=== PATIENT | male | born 1950 | race Caucasian/White ===

== ENCOUNTER 2016-12-20 20:38 | Inpatient (IN) | payer OTHER ==
[~2016-12-20] VITALS: Ht 170.2 cm; Wt 95.0 kg
[~2016-12-20 20:38] MED LIST: AMOX500C2 PO
[2016-12-20] MEDS ORDERED: NITROGLYCERIN (SL) 0.4 MG TAB SL ONE (21:30)
[2016-12-20 21:47] LABS: BASOPHILS % 0.6 % (0.0-2.0); EOSINOPHILS # 0.2 10^3/ul (0.0-0.5); EOSINOPHILS % 3.2 % (0.0-7.0); HEMOGLOBIN 12.2 g/dl (14.0-18.0); LYMPHOCYTES # 2.6 10^3/ul (0.8-2.9); LYMPHOCYTES % 35.4 % (15.0-51.0); MEAN CORPUSCULAR HEMOGLOBIN 20.8 pg (29.0-33.0); MEAN CORPUSCULAR HGB CONC 31.3 g/dl (32.0-37.0); MEAN CORPUSCULAR VOLUME 66.6 fl (82.0-101.0); MEAN PLATELET VOLUME 9.7 fl (7.4-10.4); MONOCYTE # 0.7 10^3/ul (0.3-0.9); MONOCYTES % 9.7 % (0.0-11.0); NEUTROPHIL # 3.7 10^3/ul (1.6-7.5); NEUTROPHILS % 50.8 % (39.0-77.0); PLATELET COUNT 278 10^3/UL (140-415); RED BLOOD COUNT 5.86 10^6/ul (4.70-6.10); RED CELL DISTRIBUTION WIDTH 16.3 % (11.5-14.5); WHITE BLOOD COUNT 7.2 10^3/ul (4.8-10.8)
[2016-12-20 22:10] LABS: ANION GAP 15 (8-16); BLOOD UREA NITROGEN 19 mg/dl (7-20); CALCIUM 9.1 mg/dl (8.4-10.2); CARBON DIOXIDE 25 mmol/L (21-31); CHLORIDE 107 mmol/L (97-110); CREATININE 1.21 mg/dl (0.61-1.24); GLUCOSE 128 mg/dl (70-220); POTASSIUM 3.7 mmol/L (3.5-5.1); SODIUM 143 mmol/L (135-144)
[2016-12-20 22:23] LABS: B-TYPE NATRIURETIC PEPTIDE 73 PG/ML (0-125); TROPONIN-I < 0.012 ng/ml (0.00-0.12)
--- NOTE | 2016-12-20 22:25 | RADRPT ---
PROCEDURE: XR Chest. CLINICAL INDICATION: Chest pain. TECHNIQUE: Single frontal view of the chest. COMPARISON: 03/23/2014. FINDINGS: Cardiomegaly. Mild bibasilar atelectasis. The lungs are otherwise clear. No signs of pleural fluid o r pneumothorax are seen. The osseous structures and soft tissues are unremarkable. IMPRESSION: Mild bibasilar atelectasis. RPTAT: [facility] Physician Liane Date Time Electronically viewed and signed by Petra Crowe Physician on 12/20/2016 22:25 RS/
--- NOTE | 2016-12-20 22:48 | ERD ---
ER Documentation Chief Complaint Chief Complaint bib self, cc: cp x 4 hours, did not take medication, coughing HPI This is a 66-year-old male with history of hypertension, hyperlipidemia, who presents to the emergency room for evaluation of chest pain. Patient states that his chest pain for the past 4 hours and localizes it to the center of his chest. The patient describes as a pressure-like sensation with no radiation associated with mild shortness of breath. He does state that days had a dry cough as well. He denies any fevers or chills or diaphoresis associated with her symptoms and also denies any aggravating or relieving factors for her symptoms. The patient came to the ER today for evaluation and states that he has not had a stress test in over one year. ROS All systems reviewed and are negative except as per history of present illness. Medications Home Meds Reported Medications Amoxicillin* (Amoxicillin*) 500 Mg Cap, 500 MG PO Q8, CAP 03/23/14 Allergies Allergies: Coded Allergies: No Known Allergy (Unverified , 03/23/14) PMhx/Soc History of Surgery: Yes (back; shoulder surgeries) Hx Cardiac Disorders: Yes (DC) Hx Miscellaneous Medical Probl: Yes (Gallstones) Hx Alcohol Use: No Hx Substance Use: No Hx Tobacco Use: No Smoking Status: Never smoker Physical Exam Vitals Vital Signs Date Time Temp Pulse Resp B/P Pulse Ox O2 Delivery O2 Flow Rate FiO2 12/20/16 22:10 74 139/74 95 Room Air 12/20/16 20:44 98.5 81 19 135/77 100 Physical Exam INITIAL VITAL SIGNS: Reviewed by me GENERAL: The patient is well developed and appropriate for usual state of health in no apparent distress HEENT: Pupils equal, round, and reactive to light. EOMI. There is no scleral icterus. NECK: C-spine is soft and supple, there is no meningismus. There is no cervical lymphadenopathy. LUNGS: Clear to auscultation bilaterally. There are no rales, wheezes or rhonchi. HEART: Regular rate and rhythm, no murmurs, clicks, rubs or gallops. ABDOMEN: Soft, non-tender, non-distended. There are bowel sounds in all four quadrants. No rebound or guarding. EXTREMITIES: There is no peripheral cyanosis or edema. No focal swelling or erythema. NEUROLOGICAL: The patient moves all four extremities with 5/5 strength. Cranial nerves II - XII are intact. Normal gait. Alert and oriented SKIN: There is no apparent rash or petechiae. HEME/LYMPHATIC: There is no evidence of excessive bruising or lymphedema. PSYCHIATRIC: The patient does not appear anxious or depressed. Result Diagram: 12/20/16211612/20/162116 Results 24 hrs Laboratory Tests Test 12/20/16 21:17 White Blood Count 7.210^3/ul Red Blood Count 5.8610^6/ul Hemoglobin 12.2g/dl Hematocrit 39.0% Mean Corpuscular Volume 66.6fl Mean Corpuscular Hemoglobin 20.8pg Mean Corpuscular Hemoglobin Concent 31.3g/dl Red Cell Distribution Width 16.3% Platelet Count 62676^3/UL Mean Platelet Volume 9.7fl Neutrophils % 50.8% Lymphocytes % 35.4% Monocytes % 9.7% Eosinophils % 3.2% Basophils % 0.6% Nucleated Red Blood Cells % 0.0/100WBC Neutrophils # 3.710^3/ul Lymphocytes # 2.610^3/ul Monocytes # 0.710^3/ul Eosinophils # 0.210^3/ul Basophils # 0.010^3/ul Nucleated Red Blood Cells # 0.010^3/ul Sodium Level 143mmol/L Potassium Level 3.7mmol/L Chloride Level 107mmol/L Carbon Dioxide Level 25mmol/L Anion Gap 15 Blood Urea Nitrogen 19mg/dl Creatinine 1.21mg/dl Glucose Level 128mg/dl Calcium Level 9.1mg/dl Troponin I < 0.012ng/ml B-Type Natriuretic Peptide 73PG/ML Current Medications Medications (Trade) Dose Ordered Sig/Viviana Route PRN Reason Start Time Stop Time Status Last Admin Dose Admin Nitroglycerin (Nitroglycerin (Sl Tab) 0.4 Mg) 1 tab ONCE ONCE SL 12/20/16 21:30 12/20/16 21:31 DC Aspirin (Aspirin) 325 mg ONCE ONCE PO 12/20/16 23:00 12/20/16 23:01 Procedures/MDM EKG: #1 Rate/Rhythm: [Normal Sinus Rhythm] QRS, ST, T-waves: [No changes consistent w/ acute ischemia] Impression: [No evidence of ischemia or arrhythmia] EKG: #2 Rate/Rhythm: [Normal Sinus Rhythm] QRS, ST, T-waves: [No changes consistent w/ acute ischemia] Impression: [No evidence of ischemia or arrhythmia] Chest X-ray 1V Interpreted by me: Soft Tissue: No acute abnormalities Bones: No acute abnormalities Mediastinum/Cardiac Silhouette/Lungs: [No acute abnormalities] This 66-year-old male presents to the ER for evaluation of chest pain. This patient does have a history of hypertension and hyperlipidemia. As patient's first EKG is nonischemic, second EKG is also nonischemic and first troponin is negative. This patient has not had a stress test in over one year and given his age, and multiple risk factors he will be placed in for serial troponins and possible cardiology consultation. The patient will be admitted to Dr. Bard espinoza and will be placed on the telemetry floor at this time. As patient is hemodynamically stable at this time with no signs of hypoxia, and I doubt pulmonary embolism or aortic dissection at this time. Departure Diagnosis: Primary Impression: Chest pain Additional Impression: Microcytic anemia Condition: Stable CHANTEL MIRANDA DO Dec 20, 2016 22:47
[2016-12-20] MEDS ORDERED: ONDANSETRON 4 MG INJ IV PRN (23:00)
[2016-12-20] MEDS ORDERED: ASPIRIN 325 MG TAB PO ONE (23:00)
[2016-12-20] MEDS ORDERED: ACETAMINOPHEN 325 MG TAB PO PRN (23:00)
[2016-12-21] VITALS (16 sets, daily range): BP systolic 119–137; BP diastolic 67–81; PULSE 49–103; RESP 18–20; TEMP 98.7; Ht 170.2 cm; Wt 95.0 kg
[2016-12-21] MEDS ORDERED: morphine 2 MG INJ IV PRN
[2016-12-21 04:31] LABS: CREATINE KINASE 75 IU/L (23-200)
[2016-12-21 04:48] LABS: ALANINE AMINOTRANSFERASE 45 IU/L (13-69); ALBUMIN 3.7 g/dl (3.3-4.9); ALBUMIN/GLOBULIN RATIO 1.05; ALKALINE PHOSPHATASE 75 IU/L (42-121); ANION GAP 16 (8-16); ASPARTATE AMINO TRANSFERASE 25 IU/L (15-46); BILIRUBIN,INDIRECT 0.2 mg/dl (0-1.1); BILIRUBIN,TOTAL 0.2 mg/dl (0.2-1.3); BLOOD UREA NITROGEN 18 mg/dl (7-20); CALCIUM 8.8 mg/dl (8.4-10.2); CARBON DIOXIDE 24 mmol/L (21-31); CHLORIDE 109 mmol/L (97-110); CHOL/HDL RATIO 2.8 RATIO; CHOLESTEROL 106 mg/dl (100-200); CREATININE 1.11 mg/dl (0.61-1.24); GLUCOSE 116 mg/dl (70-220); HDL CHOLESTEROL 37 mg/dl (30-78); SODIUM 145 mmol/L (135-144); TOTAL PROTEIN 7.2 g/dl (6.1-8.1); TRIGLYCERIDES 46 mg/dl (0-149)
[2016-12-21 04:56] LABS: CK-MB 1.07 ng/ml (0.0-2.4); TROPONIN-I < 0.012 ng/ml (0.00-0.12)
[2016-12-21 05:19] LABS: TROPONIN-I < 0.012 ng/ml (0.00-0.12)
[2016-12-21 08:59] LABS: CREATINE KINASE 66 IU/L (23-200)
[2016-12-21 09:04] LABS: TROPONIN-I < 0.012 ng/ml (0.00-0.12)
[2016-12-21 09:05] LABS: CK-MB 0.95 ng/ml (0.0-2.4)
[2016-12-21] MEDS: ASPIRIN (EC) 325 MG TAB PO SCH (09:37)
[2016-12-21] MEDS: METOPROLOL 25 MG TAB PO SCH ×2 (09:38→22:49)
[2016-12-21] MEDS: ENOXAPARIN 40 MG/0.4 ML SYG SC SCH (09:39)
[2016-12-21] MEDS ORDERED: POTASSIUM CHLORIDE (SR) 20 MEQ TAB PO STA (10:59)
[2016-12-21] MEDS ORDERED: MAGNESIUM SULFATE 2 GM/50 ML 50 ML IVPB ONE (11:00)
--- NOTE | 2016-12-21 14:52 | HP ---
DATE OF ADMISSION: 12/20/2016 CHIEF COMPLAINT AND HISTORY OF PRESENT ILLNESS: The patient is a 66-year-old gentleman with a hist ory of hypertension and stated that he was diagnosed with a myocardial infarction while he was in [place] [facility] approximately 7 to 10 days ago. The patient reported that he was suggested to undergo a cardi ac catheterization, but he declined and was discharged home on 5 medications, he could not remember the names, but has not been taking those medications when he came to the [facility] a couple of d ays ago. The patient came to ER with chest pain on and off for 7 to 10 days, it got worse yesterday and therefore decided to come to the ER. The patient did not have any diaphoresis. No reported ra diation to the left upper extremity. The patient's pain was located in the anterior chest. Today, however, he stated that his pain is more when he coughs and sneezes. No reported fever or chills, n o reported upper respiratory infection, no reported nausea, vomiting or diarrhea. No reported abdom inal pain, no reported headache, dizziness, syncope. No history of focal weakness. No history of r esting pain, no history of claudication. REVIEW OF SYSTEMS: Rest of the review of systems was unremarkable. PAST SURGICAL HISTORY: The patient is status post right knee and right shoulder surgery and surgery for disk disease and also surgery for some benign tumor, details not available. PAST MEDICAL HISTORY: History of kidney stone. SOCIAL HISTORY: No smoking, no alcohol. FAMILY HISTORY: The patient's father had diabetes. PHYSICAL EXAMINATION: GENERAL: The patient is conscious, awake, alert. VITAL SIGNS: Temperature 98, pulse 64, respirations 18, blood pressure 119/81, O2 saturation 98%. HEENT: No eye discharge or redness. Extraocular movements intact. Oropharynx clear. NECK: Supple. No evidence of thyromegaly. CHEST: Fairly clear. CARDIOVASCULAR: S1, S2 normal. No murmur. ABDOMEN: Soft, nondistended, nontender. Bowel sounds present. EXTREMITIES: No leg edema. NEUROLOGIC: The patient is awake, alert, fairly oriented with no gross focal deficit. LABORATORY DATA: WBC 7.2, hemoglobin 12.2, platelet 278. Sodium 143, potassium 3.7, BUN 19, creati nine 1.2, glucose 128, calcium 9.1. Troponin negative x3. LDL 60, triglycerides 46. Chest x-ray: Mild bibasilar atelectasis. IMPRESSION: 1. Chest pain, possible recent myocardial infarction, possible underlying coronary artery disease. 2. Hypertension. PLAN: The patient admitted on telemetry floor. The patient will be started on aspirin, nitrate, be ta marin and will give Lovenox for DVT prophylaxis. We will also add a small dose of statins. Th e patient did have a few beats of V-tach, asymptomatic. The patient was hemodynamically stable. We will obtain magnesium level. The patient's potassium was 3.7. We will give 40 mEq p.o. potassium. An echocardiogram will be obtained. I am also requesting a consult from Dr. Irvin Jay. Dictated By: TASHIA LEDBETTER/JAMIE Conf#: [id number] DID#: [id number]
--- NOTE | 2016-12-21 16:33 | RADRPT ---
Echocardiogram Report Patient Name: MATILDE PRYOR Gender: Male Date: 1950 Study Date: 21-Dec-2016 Career Discovery Teacher: NAVEEN Location: 5554 Ref. Physician: TASHIA RODRIGUEZ Quality: Good Procedures: Transthoracic echocardiogram with complete 2D, M-Mode, and doppler examination. Indications: Chest Pain. 2D/M Mode Doppler Measurement Value Normal Ranges Measurement Value Normal Ranges AoR Diam MM 3.5 cm SHANKAR Vmax 3.0 cm2 ACS MM 2.2 cm SHANKAR VTI 3.0 cm2 LA/Ao MM 1.1 AV Peak Beny 1.0 m/sec LA Dimen MM 3.9 cm AV Peak PG 3.8 mmHg LVIDd 2D 4.7 3.5 - 5.6 cm LVOT Peak Beny 0.9 m/sec LVIDs 2D 3.2 2.1 - 4.1 cm LVOT Peak PG 3.0 mmHg LVPWd 2D 1.1 0.6 - 1.1 cm MV E Peak Beny 0.6 m/sec IVSd 2D 1.1 0.6 - 1.1 cm MV A Peak Beny 0.9 m/sec EDV 2D 104.5 cm3 MV E/A 0.7 ESV 2D 34.1 cm3 MV Decel Time 185 msec EF 2D 60.0 50.0 - 65.0 % MV Decel [place] 3 LVOT Diam 2.1 cm MV E/A 0.7 TR Peak Beny 2.2 m/sec TR Peak PG 18.9 mmHg RVSP 22.0 mmHg RA Pressure 3.0 Findings Left Ventricle: Normal left ventricular systolic function. Normal left ventricular cavity size. Normal left ventricular wall thickness. Ejection fraction is visually estimated at 5560 %. Tissue Doppler/Mitral Doppler indices are consistent with impaired relaxation (Stage I diastolic dysfunction). Right Ventricle: Normal right ventricular size. Normal right ventricular systolic function. Left Atrium: The left atrium is normal in size. Right Atrium: The right atrium is normal in size. Atrial Septum: Normal atrial septum. Mitral Valve: Normal appearance of the mitral valve. Normal appearance and function of the mitral valve. Mild mitral leaflet calcification. There is trace to mild mitral valve regurgitation. Aortic Valve: Normal appearance of the aortic valve. No significant aortic stenosis or insufficiency. Normal trileaflet aortic valve structure. Trileaflet aortic valve. Tricuspid Valve: Normal appearance of the tricuspid valve. Estimated peak PA systolic pressure 22 mmHg. There is trace tricuspid regurgitation. Pulmonic Valve: Normal pulmonic valve appearance. Pericardium: Normal pericardium with no significant pericardial effusion. Aorta: Not well visualized. IVC: The IVC is not well visualized. Conclusions 1.Normal left ventricular systolic function. Normal left ventricular cavity size. Normal left ventricular wall thickness. Ejection fraction is visually estimated at 55-60 %. Tissue Doppler/Mitral Doppler indices are consistent with impaired relaxation (Stage I diastolic dysfunction). 2.Normal appearance of the mitral valve. Normal appearance and function of the mitral valve. Mild mitral leaflet calcification. There is trace to mild mitral valve regurgitation. 3.Normal appearance of the tricuspid valve. Estimated peak PA systolic pressure 22 mmHg. There is trace tricuspid regurgitation. Electronically Signed By: Irvin Jay 21-Dec-2016 16:32:54 -0700 Patient Name: MATILDE PRYOR Study Date: 21-Dec-2016 [id number]
--- NOTE | 2016-12-21 16:41 | RADRPT ---
Vent Rate: 73 bpm RR Interval: 0 msec MS Interval: 190 msec QRS Duration: 96 msec QT Interval: 414 msec QTC Interval: 456 msec P-R-T [place]: 58 - 78 - -11 degrees Normal sinus rhythm Incomplete right bundle branch block T wave abnormality, consider inferolateral ischemia Abnormal ECG Electronically Signed By: Irvin Jay [id number]
--- NOTE | 2016-12-21 20:26 | CONS ---
DATE OF ADMISSION: 12/20/2016 DATE OF CONSULTATION: 12/21/2016 TYPE OF CONSULTATION: Cardiology. REASON FOR CONSULTATION: Chest pain, assess for acute coronary syndrome, as well as nonsustained ve ntricular tachycardia. REQUESTING PHYSICIAN: Lopez Haywood MD HISTORY OF PRESENT ILLNESS: Mr. May is a 66-year-old male with a history of hypertension, possible prior myocardial infarction recently while visiting [facility] and told that he was suggested to have a cardiac catheterization at that time but decided to return home for further evaluation and treatment. The patient states since then he has returned home. He has had substernal chest pain d escribed as a pressure-like sensation or a tightening across his chest. Upon arrival in the emergen cy department, temperature of 98.5, blood pressure 135/77, pulse 81, respiratory rate 19, satting 10 0%. The patient's labs revealed a sodium of 145, potassium 4.0, creatinine 1.1, BUN 18. BNP is 73. Troponin negative. LDL 60, HDL 37. TSH was 0.516. White blood count 7.2, hemoglobin 12.2, plate let count of 278. The patient underwent a chest x-ray revealing mild bibasilar atelectasis. The andrea null's electrocardiogram revealed normal sinus rhythm, rate of 73, with normal axis, incomplete rig ht bundle branch block and inferolateral T-wave inversions. The patient subsequently has been admit shamir to the floor and since admitted to floor has had negative troponins x3. The patient denies curr ent chest pain but states that he has had some chest pain this morning. PAST MEDICAL HISTORY: As above in HPI. MEDICATIONS CURRENTLY IN HOSPITAL: 1. Lipitor 10 mg at bedtime. 2. Clotrimazole. 3. Aspirin 324 mg daily. 4. Metoprolol 25 mg p.o. b.i.d. 5. Lovenox 40 mg daily. 6. Sublingual nitroglycerin p.r.n. 7. Tylenol p.r.n. 8. Morphine p.r.n. ALLERGIES: NO KNOWN DRUG ALLERGIES. SOCIAL HISTORY: No tobacco, EtOH or illicit drug use. FAMILY HISTORY: No history of sudden cardiac or early CAD. REVIEW OF SYSTEMS: As above in HPI. CONSTITUTIONAL: No fevers, chills. PULMONARY: No current shortness of breath. CARDIOVASCULAR: Chest pain. GASTROINTESTINAL: No vomiting. GENITOURINARY: No hematuria. MUSCULOSKELETAL: Degenerative joint disease. PSYCHIATRIC: The patient denies depression. NEUROLOGIC: No documented history of CVA. PHYSICAL EXAMINATION VITAL SIGNS: Temperature of 98.8, blood pressure 132/78, pulse 73, respiratory rate 18, satting 98% . GENERAL: The patient is alert, awake, in no acute distress. NECK: JVP approximately 8 cm water. CHEST: Fair air movement throughout. HEART: Regular rate and rhythm. Normal S1, S2, I/ systolic murmur, nondisplaced PMI. ABDOMEN: Positive bowel sounds, soft. EXTREMITIES: No pitting edema, 1+ pulses bilaterally at posterior tibial. LABORATORIES: As above in HPI with the patient having negative troponins since admit x3. IMAGING STUDIES: As above in HPI. No further imaging studies for my review at this time. ELECTROCARDIOGRAM: As above in HPI. No further electrocardiograms for my review at this time. IMPRESSION: 1. Chest pain. Assess for acute coronary syndrome. 2. Abnormal electrocardiogram with inferolateral T-wave inversions. Assess for acute coronary synd blank. 3. Hypertension. 4. Dyslipidemia. 5. History of possible myocardial infarction in [facility] in the last 2 to 3 weeks. 6. Anemia, mild. 7. Hypernatremia, mild. 8. Possible nonsustained ventricular tachycardia x6 beats. 9. Bradycardia. RECOMMENDATIONS: 1. At this time would maintain the patient on telemetry monitoring. 2. Follow rhythm and rate control closely and assess for any possible recurrent bouts of possible v entricular tachycardia or significant bradycardia. 3. Continue the patient's current beta marin at this time. 4. Continue the patient's current aspirin at this time. 5. Will give the patient oral nitrates and follow symptomatology. 6. Continue the patient's current statin therapy and adjust it according to fasting lipid panel. 5. Check a 2D echo to further assess the patient's ejection fraction, wall motion, any major valve abnormalities and will send additional troponin to assure that the patient does not have any coronar y syndromes and if they do return negative, then at that point, I will schedule the patient for a ca rdiac stress test to take place in the morning to assess for the possibility of significant obstruct vianney coronary artery disease, chest pain, subsequently admit to the hospital, EKG abnormalities and possible prior GA, with possible need to progress to left heart catheterization. Thank you for allowing me to take part in the care of this patient. I will continue to follow along very closely with you with further recommendations to be made as the patient progresses through his inpatient hospital clinical course. Dictated By: EUFEMIA JOE/JAMIE Conf#: [id number] DID#: [id number]
[2016-12-21] MEDS: ISOSORBIDE DINITRATE 10 MG TAB PO SCH (22:48)
[2016-12-21] MEDS: ATORVASTATIN 10 MG TAB PO SCH (22:48)
[2016-12-21] MEDS: CLOTRIMAZOLE 1% 30 GM CR TOP SCH (22:50)
[2016-12-22] VITALS (12 sets, daily range): BP systolic 101–116; BP diastolic 60–68; PULSE 65–78; RESP 18–20
[2016-12-22] MEDS: ENOXAPARIN 40 MG/0.4 ML SYG SC SCH (08:34)
[2016-12-22] MEDS: CLOTRIMAZOLE 1% 30 GM CR TOP SCH ×2 (08:35→21:46)
[2016-12-22] MEDS: ISOSORBIDE DINITRATE 10 MG TAB PO SCH ×3 (08:36→21:42)
[2016-12-22] MEDS: ASPIRIN (EC) 325 MG TAB PO SCH (08:36)
[2016-12-22] MEDS: METOPROLOL 25 MG TAB PO SCH ×2 (08:36→21:41)
[2016-12-22] MEDS ORDERED: INFLUENZA VIRUS VACCINE 0.5 ML (DISPENSING) IM* ONE (09:00)
[2016-12-22 09:14] LABS: CALCIUM 9.4 mg/dl (8.4-10.2); CREATININE 1.19 mg/dl (0.61-1.24); POTASSIUM 4.8 mmol/L (3.5-5.1)
[2016-12-22 10:01] LABS: CHOL/HDL RATIO 3.3 RATIO; CHOLESTEROL 134 mg/dl (100-200); HDL CHOLESTEROL 40 mg/dl (30-78); TRIGLYCERIDES 74 mg/dl (0-149)
[2016-12-22 10:12] LABS: TROPONIN-I < 0.012 ng/ml (0.00-0.12)
[2016-12-22] MEDS ORDERED: REGADENOSON 0.4 MG/5 ML SYG ONE (12:41)
--- NOTE | 2016-12-22 13:23 | CONS ---
Date/Time of Note Date/Time of Note DATE: 12/22/16 TIME: 13:12 Assessment/Plan Assessment/Plan Chief Complaint/Hosp Course IMPRESSION: 1. Chest pain. Assess for acute coronary syndrome.-negative trop x 3 2. Abnormal electrocardiogram with inferolateral T-wave inversions. 3. Hypertension. 4. Dyslipidemia. 5. History of possible myocardial infarction in [facility] in the last 2 to 3 weeks. 6. Anemia, mild. 7. Hypernatremia, mild. 8. Possible nonsustained ventricular tachycardia x6 beats. 9. Bradycardia. Recc: -Tele -Continue BB/oral nitrates -Continue statin -Lexiscan stress test today -await echo Problems: Consultation Date/Type/Reason Admit Date/Time Dec 20, 2016 at 22:45 Initial Consult Date 12/20/2016 Type of Consultation: cardiology Reason for Consultation chest pain Referring Provider: TASHIA RODRIGUEZ MD Exam/Review of Systems Vital Signs Vitals Vital Signs Date Time Temp Pulse Resp B/P Pulse Ox O2 Delivery O2 Flow Rate FiO2 12/22/16 11:58 98.3 72 20 101/61 93 12/21/16 04:10 Nasal Cannula 2.0 Intake and Output 12/21/16 12/21/16 12/22/16 15:00 23:00 07:00 Intake Total 50 ml 750 ml 350 ml Output Total 1000 ml Balance 50 ml -250 ml 350 ml Exam Review of Systems: CONSTITUTIONAL: No fevers, chills. PULMONARY: No sob CARDIOVASCULAR: No chest pain/palpitations GASTROINTESTINAL: No nausea/vomiting. GENITOURINARY: No hematuria/dysuria. MUSCULOSKELETAL: No myagias/arthalgias. PSYCHIATRIC: The patient denies depression. NEUROLOGIC: No weakness Constitutional: alert, oriented Psych: no complaints Head: normocephalic Neck: jvd (9 cm water), supple Respiratory: clear to auscultation Cardiovascular: regular rate and rhythm Gastrointestinal: non-tender, soft Musculoskeletal: muscle tone (normal) Extremities: edema (none) Neurological: other (none) Results Result Diagram: 12/20/16211612/22/16 0805 Results 24 hrs Laboratory Tests Test 12/22/16 08:05 Sodium Level 144 Potassium Level 4.8 Chloride Level 105 Carbon Dioxide Level 28 Anion Gap 16 Blood Urea Nitrogen 18 Creatinine 1.19 Glucose Level 100 Calcium Level 9.4 Magnesium Level 2.0 Troponin I < 0.012 Triglycerides Level 74 Cholesterol Level 134 LDL Cholesterol, Calculated 79 HDL Cholesterol 40 Cholesterol/HDL Ratio 3.3 Medications Medications Current Medications Aspirin (Ecotrin) 325 mg DAILY PO Last administered on 12/22/16 08:36; Admin Dose 325 MG; Start 12/21/16 at 09:00 Nitroglycerin (Nitroglycerin (Sl Tab) 0.4 Mg) 1 tab Q5M PRN SL ANGINA; Start 12/21/16 at 00:00 Metoprolol Tartrate (Lopressor) 25 mg BID PO Last administered on 12/22/16 08 :36; Admin Dose 25 MG; Start 12/21/16 at 09:00 Acetaminophen (Tylenol Tab) 500 mg Q4H PRN PO PAIN AND OR ELEVATED TEMP; Start 12/21/16 at 00:00 Enoxaparin Sodium (Lovenox) 40 mg DAILY SC Last administered on 12/22/16 08: 34; Admin Dose 40 MG; Start 12/21/16 at 09:00 Morphine Sulfate (morphine) 2 mg Q4H PRN IV PAIN LEVEL 4-6; Start 12/21/16 at 00:00 Atorvastatin Calcium (Lipitor) 10 mg HS PO Last administered on 12/21/16 22: 48; Admin Dose 10 MG; Start 12/21/16 at 21:00 Clotrimazole (Lotrimin Cr) 1 applic BID TOP Last administered on 12/22/16 08: 35; Admin Dose 1 APPLIC; Start 12/21/16 at 21:00 Isosorbide Dinitrate (Isordil) 10 mg TID PO Last administered on 12/22/16 08: 36; Admin Dose 10 MG; Start 12/21/16 at 21:00 EUFEMIA BRIDGES Dec 22, 2016 13:23
--- NOTE | 2016-12-22 15:26 | RADRPT ---
PROCEDURE: Lexiscan myocardial perfusion study CLINICAL INDICATION: 66 -year-old patient complaining of chest pain. TECHNIQUE: Lexiscan 0.4 mg intravenously separate acquisition gated myocardial perfusion SPECT usi ng Tc 99m Myoview 28.7 mCi intravenously at stress and Tc-99m Myoview, 10.4 mCi intravenously at res t was performed using the rest/stress sequence. Poststress Myoview SPECT images were obtained in th e supine position. COMPARISON: No prior studies. FINDINGS: Perfusion images reveal no evidence of perfusion defects. Lexiscan post stress gated SPECT images demonstrate no wall motion abnormalities. IMPRESSION: 1. No evidence of perfusion defects. 2. No wall motion abnormalities. 3. The left ventricle ejection fraction at stress is 65%. A call report was made to Dr. Jay at 03:24 p.m. on December 22, 2016. RPTAT: HH .Doris Diez MD, Date Time Electronically viewed and signed by .Doris Diez MD, MD on 12/22/2016 15:26 .L/
--- NOTE | 2016-12-22 15:30 | RADRPT ---
PROCEDURE: Renal US. CLINICAL INDICATION: Flank pain. TECHNIQUE: Multiple sonographic images of the kidneys and urinary bladder were obtained. The imag es were reviewed on a PACS workstation. COMPARISON: No prior studies are available for comparison. FINDINGS: The right kidney measures 12.1 x 5.6 x 5.5 cm. The left kidney measures 11.4 x 5.3 x 4.8 cm. There is no solid renal mass. There is a benign cyst in the mid right kidney measuring 1.5 x 1.8 x 1 .6 cm. There is no hydronephrosis. There is a nonobstructing 0.4 cm calculus in the mid right kidney. There is no other renal calculus. Renal parenchymal thickness is normal bilaterally. Echogenicity is normal bilaterally. The perirenal regions are normal with no fluid collection or mass. The urinary bladder is unremarkable. IMPRESSION: 1. Benign cyst in the mid right kidney measuring 1.6 cm. 2. Nonobstructing 0.4 cm calculus in the mid right kidney. 3. Otherwise normal renal ultrasound. RPTAT: QQ .Fernando Bloom MD, Date Time Electronically viewed and signed by .Fernando Bloom MD, MD on 12/22/2016 15:30 .R/
--- NOTE | 2016-12-22 19:16 | PN ---
Date/Time of Note Date/Time of Note DATE: 12/22/16 TIME: 19:12 Assessment/Plan VTE Prophylaxis VTE Prophylaxis Intervention: SCD's Lines/Catheters IV [facility]ter [facility]from [facility] Saline Lock Urinary Cath still in place: No Assessment/Plan Chief Complaint/Hosp Course Patient status post Lexiscan today, denies any chest pain denies any shortness of breath. Problems: Assessment/Plan - Chest pain. Assess for acute coronary syndrome.-negative trop x 3. Status post Lexiscan today. - Hypertension. Continue metoprolol. - Dyslipidemia. Continue Lipitor. - Nonsustained ventricular tachycardia x6 beats 2 days ago. Further recommendations based on clinical course. Plan of care discussed with Dr. Haywood Exam/Review of Systems Vital Signs Vitals Vital Signs Date Time Temp Pulse Resp B/P Pulse Ox O2 Delivery O2 Flow Rate FiO2 12/22/16 16:00 78 12/22/16 15:55 99.0 20 116/65 96 12/21/16 04:10 Nasal Cannula 2.0 Intake and Output 12/21/16 12/21/16 12/22/16 15:00 23:00 07:00 Intake Total 50 ml 750 ml 350 ml Output Total 1000 ml Balance 50 ml -250 ml 350 ml Exam Constitutional: alert, oriented Head: normocephalic Neck: supple Respiratory: normal air movement Cardiovascular: nl pulses, regular rate and rhythm Gastrointestinal: non-tender, soft Musculoskeletal: nl extremities to inspection Extremities: normal pulses Results Result Diagram: 12/20/16211612/22/16 0805 Results 24 hrs Laboratory Tests Test 12/22/16 08:05 Sodium Level 144 Potassium Level 4.8 Chloride Level 105 Carbon Dioxide Level 28 Anion Gap 16 Blood Urea Nitrogen 18 Creatinine 1.19 Glucose Level 100 Calcium Level 9.4 Magnesium Level 2.0 Troponin I < 0.012 Triglycerides Level 74 Cholesterol Level 134 LDL Cholesterol, Calculated 79 HDL Cholesterol 40 Cholesterol/HDL Ratio 3.3 Medications Medications Current Medications Aspirin (Ecotrin) 325 mg DAILY PO Last administered on 12/22/16t 08:36; Admin Dose 325 MG; Start 12/21/16 at 09:00 Nitroglycerin (Nitroglycerin (Sl Tab) 0.4 Mg) 1 tab Q5M PRN SL ANGINA; Start 12/21/16 at 00:00 Metoprolol Tartrate (Lopressor) 25 mg BID PO Last administered on 12/22/16 08 :36; Admin Dose 25 MG; Start 12/21/16 at 09:00 Acetaminophen (Tylenol Tab) 500 mg Q4H PRN PO PAIN AND OR ELEVATED TEMP; Start 12/21/16 at 00:00 Enoxaparin Sodium (Lovenox) 40 mg DAILY SC Last administered on 12/22/16 08: 34; Admin Dose 40 MG; Start 12/21/16 at 09:00 Morphine Sulfate (morphine) 2 mg Q4H PRN IV PAIN LEVEL 4-6; Start 12/21/16 at 00:00 Atorvastatin Calcium (Lipitor) 10 mg HS PO Last administered on 12/21/16 22: 48; Admin Dose 10 MG; Start 12/21/16 at 21:00 Clotrimazole (Lotrimin Cr) 1 applic BID TOP Last administered on 12/22/16 08: 35; Admin Dose 1 APPLIC; Start 12/21/16 at 21:00 Isosorbide Dinitrate (Isordil) 10 mg TID PO Last administered on 12/22/16 08: 36; Admin Dose 10 MG; Start 12/21/16 at 21:00 JEN CROOKS Dec 22, 2016 19:16
[2016-12-22] MEDS: ATORVASTATIN 10 MG TAB PO SCH (21:43)
[2016-12-22] MEDS: ACETAMINOPHEN 500 MG TAB PO PRN (23:50)
[2016-12-23] VITALS (13 sets, daily range): BP systolic 109–129; BP diastolic 59–76; PULSE 60–139; RESP 18–21
--- NOTE | 2016-12-23 01:59 | CARRPT ---
DATE OF PROCEDURE: 12/22/2016 TYPE OF PROCEDURE: Lexiscan Cardiolite stress test, electrocardiogram portion. INDICATION: Chest pain concerning for angina, assess for ischemia. BASELINE VITAL SIGNS AND ELECTROCARDIOGRAM: Pulse 69, blood pressure 109/77. Electrocardiogram rev eals normal sinus rhythm, rate of 69, normal axis, normal intervals, inferolateral T-wave inversions . PROCEDURE: The patient underwent standard Lexiscan infusion protocol over 10 seconds followed by ra diolabeled tracer. The patient's test was stopped due to completion of protocol. Maximal achieved blood pressure during the test 137/63. Maximal achieved heart rate during the test 98. ELECTROCARDIOGRAM FINDINGS: The patient did not develop any new Lexiscan-induced ST or T-wave stratton es from baseline abnormalities. No documented PVCs. SYMPTOMS: The patient had no complaints of chest pain or shortness of breath during stress testing. IMPRESSION: 1. No Lexiscan-induced ST or T-wave changes from baseline abnormalities diagnostic of cardiac ische beto. 2. No complaints of chest pain or shortness of breath during stress testing. 3. No documented premature ventricular contractions during stress testing. 4. Report of nuclear images to follow in separate dictation. Dictated By: EUFEMIA JOE/JAMIE Conf#: [id number] DID#: [id number] CC: TASHIA RODRIGUEZ MD;*EndCC*
[2016-12-23 08:25] LABS: BASOPHILS % 0.5 % (0.0-2.0); EOSINOPHILS # 0.2 10^3/ul (0.0-0.5); EOSINOPHILS % 2.3 % (0.0-7.0); HEMATOCRIT 41.4 % (42.0-52.0); HEMOGLOBIN 12.5 g/dl (14.0-18.0); LYMPHOCYTES # 1.9 10^3/ul (0.8-2.9); LYMPHOCYTES % 25.4 % (15.0-51.0); MEAN CORPUSCULAR HEMOGLOBIN 20.2 pg (29.0-33.0); MEAN CORPUSCULAR HGB CONC 30.2 g/dl (32.0-37.0); MEAN CORPUSCULAR VOLUME 66.8 fl (82.0-101.0); MEAN PLATELET VOLUME 10.5 fl (7.4-10.4); MONOCYTE # 0.5 10^3/ul (0.3-0.9); MONOCYTES % 7.2 % (0.0-11.0); NEUTROPHIL # 4.7 10^3/ul (1.6-7.5); NEUTROPHILS % 64.2 % (39.0-77.0); PLATELET COUNT 305 10^3/UL (140-415); RED CELL DISTRIBUTION WIDTH 18.3 % (11.5-14.5); WHITE BLOOD COUNT 7.4 10^3/ul (4.8-10.8)
[2016-12-23] MEDS: ASPIRIN (EC) 325 MG TAB PO SCH (08:44)
[2016-12-23] MEDS: ISOSORBIDE DINITRATE 10 MG TAB PO SCH ×3 (08:44→21:02)
[2016-12-23] MEDS: CLOTRIMAZOLE 1% 30 GM CR TOP SCH ×2 (08:45→21:02)
[2016-12-23] MEDS: METOPROLOL 25 MG TAB PO SCH ×2 (08:45→21:02)
[2016-12-23] MEDS: ENOXAPARIN 40 MG/0.4 ML SYG SC SCH (08:45)
[2016-12-23 08:50] LABS: CALCIUM 9.6 mg/dl (8.4-10.2); CREATININE 1.29 mg/dl (0.61-1.24); POTASSIUM 4.5 mmol/L (3.5-5.1)
--- NOTE | 2016-12-23 10:32 | CONS ---
Date/Time of Note Date/Time of Note DATE: 12/23/16 TIME: 10:30 Assessment/Plan Assessment/Plan Additional Assessment/Plan 1. Chest pain. Assess for acute coronary syndrome.-negative trop x 3 - SPECT NORMAL, no ischemia. 2. Abnormal electrocardiogram with inferolateral T-wave inversions- testing showed no reversible disease. 3. Hypertension - well Rx, cont RX 4. Dyslipidemia. 5. History of possible myocardial infarction in [place] in the last 2 to 3 weeks. 6. Anemia, mild. 7. Hypernatremia, mild. 8. Possible nonsustained ventricular tachycardia x6 beats - now in sinus. 9. Bradycardia- rate controlled. Consultation Date/Type/Reason Admit Date/Time Dec 20, 2016 at 22:45 Initial Consult Date Type of Consultation: cardiology Referring Provider: TASHIA RODRIGUEZ MD 24 HR Interval Summary Free Text/Dictation NO acute events - BP in good range now - no rev ischemia by STRESS TEST. ROS: No fever, no chills, no nausea, no vomiting, no diarrhea/constipation No recent weight changes + chest pain, no PND, no orthopnea No dizziness, blurred vision No thirst, no heat or cold intolerance Exam/Review of Systems Vital Signs Vitals Vital Signs Date Time Temp Pulse Resp B/P Pulse Ox O2 Delivery O2 Flow Rate FiO2 12/23/16 08:00 72 12/23/16 07:39 98.4 18 127/74 96 12/21/16 04:10 Nasal Cannula 2.0 Intake and Output 12/22/16 12/22/16 12/23/16 15:00 23:00 07:00 Intake Total 700 ml Balance 700 ml Exam General: WN/WD/NAD, AOx 3 HEENT: Unicetric/atraumatic/EOMI (follow commands) NECK: JVD elevated, no thyromegaly Lymph: no lymphadenopathy HEART: regular with no S3, II/ systolic murmur at apex LUNGS: Coarse sounds ABD: soft, NT, ND, +BS : Intact Neuro: non focal SKIN: chronic changes EXT: trace edema Results Result Diagram: 12/23/1617 12/23/16 0719 Results 24 hrs Laboratory Tests Test 12/23/16 07:17 12/23/16 07:19 White Blood Count 7.4 Red Blood Count 6.20 H Hemoglobin 12.5 L Hematocrit 41.4 L Mean Corpuscular Volume 66.8 L Mean Corpuscular Hemoglobin 20.2 L Mean Corpuscular Hemoglobin Concent 30.2 L Red Cell Distribution Width 18.3 H Platelet Count 305 Mean Platelet Volume 10.5 H Neutrophils % 64.2 Lymphocytes % 25.4 Monocytes % 7.2 Eosinophils % 2.3 Basophils % 0.5 Nucleated Red Blood Cells % 0.0 Neutrophils # 4.7 Lymphocytes # 1.9 Monocytes # 0.5 Eosinophils # 0.2 Basophils # 0.0 Nucleated Red Blood Cells # 0.0 Sodium Level 143 Potassium Level 4.5 Chloride Level 105 Carbon Dioxide Level 28 Anion Gap 15 Blood Urea Nitrogen 18 Creatinine 1.29 H Glucose Level 142 # Calcium Level 9.6 Medications Medications Current Medications Aspirin (Ecotrin) 325 mg DAILY PO Last administered on 12/23/16 08:44; Admin Dose 325 MG; Start 12/21/16 at 09:00 Nitroglycerin (Nitroglycerin (Sl Tab) 0.4 Mg) 1 tab Q5M PRN SL ANGINA; Start 12/21/16 at 00:00 Metoprolol Tartrate (Lopressor) 25 mg BID PO Last administered on 12/23/16 08 :45; Admin Dose 25 MG; Start 12/21/16 at 09:00 Acetaminophen (Tylenol Tab) 500 mg Q4H PRN PO PAIN AND OR ELEVATED TEMP Last administered on 12/22/16 23:50; Admin Dose 500 MG; Start 12/21/16 at 00:00 Enoxaparin Sodium (Lovenox) 40 mg DAILY SC Last administered on 12/22/16 08: 34; Admin Dose 40 MG; Start 12/21/16 at 09:00 Morphine Sulfate (morphine) 2 mg Q4H PRN IV PAIN LEVEL 4-6; Start 12/21/16 at 00:00 Atorvastatin Calcium (Lipitor) 10 mg HS PO Last administered on 12/22/16 21: 43; Admin Dose 10 MG; Start 12/21/16 at 21:00 Clotrimazole (Lotrimin Cr) 1 applic BID TOP Last administered on 12/23/16 08: 45; Admin Dose 1 APPLIC; Start 12/21/16 at 21:00 Isosorbide Dinitrate (Isordil) 10 mg TID PO Last administered on 12/23/16 08: 44; Admin Dose 10 MG; Start 12/21/16 at 21:00 MARIA L POTTER MD Dec 23, 2016 10:32
--- NOTE | 2016-12-23 17:24 | PN ---
Date/Time of Note Date/Time of Note DATE: 12/23/16 TIME: 17:22 Assessment/Plan VTE Prophylaxis VTE Prophylaxis Intervention: SCD's Lines/Catheters [facility] Saline Lock Urinary Cath still in place: No Assessment/Plan Chief Complaint/Hosp Course Patient with PVCs currently in sinus rhythm, complains of intermittent chest pain denies any shortness of breath. Assessment/Plan - Chest pain. Assess for acute coronary syndrome.-negative trop x 3. Status post Lexiscan today. - Hypertension. Continue metoprolol. - Dyslipidemia. Continue Lipitor. - Nonsustained ventricular tachycardia x6 beats 2 days ago. Further recommendations based on clinical course. Plan of care discussed with Dr. Haywood Problems: Exam/Review of Systems Vital Signs Vitals Vital Signs Date Time Temp Pulse Resp B/P Pulse Ox O2 Delivery O2 Flow Rate FiO2 12/23/16 16:04 98.0 81 19 118/70 96 12/21/16 04:10 Nasal Cannula 2.0 Intake and Output 12/22/16 12/22/16 12/23/16 15:00 23:00 07:00 Intake Total 700 ml Balance 700 ml Exam Constitutional: alert, oriented Head: normocephalic Neck: supple Respiratory: normal air movement Cardiovascular: nl pulses, regular rate and rhythm Gastrointestinal: non-tender, soft Musculoskeletal: nl extremities to inspection Extremities: normal pulses Results Result Diagram: 12/23/16 0717 12/23/16 0719 Results 24 hrs Laboratory Tests Test 12/23/16 07:17 12/23/16 07:19 White Blood Count 7.4 Red Blood Count 6.20 H Hemoglobin 12.5 L Hematocrit 41.4 L Mean Corpuscular Volume 66.8 L Mean Corpuscular Hemoglobin 20.2 L Mean Corpuscular Hemoglobin Concent 30.2 L Red Cell Distribution Width 18.3 H Platelet Count 305 Mean Platelet Volume 10.5 H Neutrophils % 64.2 Lymphocytes % 25.4 Monocytes % 7.2 Eosinophils % 2.3 Basophils % 0.5 Nucleated Red Blood Cells % 0.0 Neutrophils # 4.7 Lymphocytes # 1.9 Monocytes # 0.5 Eosinophils # 0.2 Basophils # 0.0 Nucleated Red Blood Cells # 0.0 Sodium Level 143 Potassium Level 4.5 Chloride Level 105 Carbon Dioxide Level 28 Anion Gap 15 Blood Urea Nitrogen 18 Creatinine 1.29 H Glucose Level 142 # Calcium Level 9.6 Medications Medications Current Medications Aspirin (Ecotrin) 325 mg DAILY PO Last administered on 12/23/16 08:44; Admin Dose 325 MG; Start 12/21/16 at 09:00 Nitroglycerin (Nitroglycerin (Sl Tab) 0.4 Mg) 1 tab Q5M PRN SL ANGINA; Start 12/21/16 at 00:00 Metoprolol Tartrate (Lopressor) 25 mg BID PO Last administered on 12/23/16 08 :45; Admin Dose 25 MG; Start 12/21/16 at 09:00 Acetaminophen (Tylenol Tab) 500 mg Q4H PRN PO PAIN AND OR ELEVATED TEMP Last administered on 12/22/16 23:50; Admin Dose 500 MG; Start 12/21/16 at 00:00 Enoxaparin Sodium (Lovenox) 40 mg DAILY SC Last administered on 12/22/16 08: 34; Admin Dose 40 MG; Start 12/21/16 at 09:00 Morphine Sulfate (morphine) 2 mg Q4H PRN IV PAIN LEVEL 4-6; Start 12/21/16 at 00:00 Atorvastatin Calcium (Lipitor) 10 mg HS PO Last administered on 12/22/16 21: 43; Admin Dose 10 MG; Start 12/21/16 at 21:00 Clotrimazole (Lotrimin Cr) 1 applic BID TOP Last administered on 12/23/16 08: 45; Admin Dose 1 APPLIC; Start 12/21/16 at 21:00 Isosorbide Dinitrate (Isordil) 10 mg TID PO Last administered on 12/23/16 08: 44; Admin Dose 10 MG; Start 12/21/16 at 21:00 JEN CROOKS Dec 23, 2016 17:24
[2016-12-23] MEDS ORDERED: SOD CHLORIDE 0.9% 500 ML IV ONE (17:30)
[2016-12-23] MEDS: ATORVASTATIN 10 MG TAB PO SCH (21:02)
--- NOTE | 2016-12-23 22:38 | RADRPT ---
Vent Rate: 69 bpm RR Interval: 0 msec OK Interval: 200 msec QRS Duration: 102 msec QT Interval: 406 msec QTC Interval: 435 msec P-R-T [place]: 48 - 72 - -8 degrees Normal sinus rhythm T wave abnormality, consider anterolateral ischemia Abnormal ECG Electronically Signed By: Parish Clark [id number]
[2016-12-24] VITALS (11 sets, daily range): BP systolic 101–132; BP diastolic 61–78; PULSE 63–76; RESP 18–20
[2016-12-24] MEDS: ASPIRIN (EC) 325 MG TAB PO SCH (08:23)
[2016-12-24] MEDS: METOPROLOL 25 MG TAB PO SCH ×2 (08:23→21:26)
[2016-12-24] MEDS: ENOXAPARIN 40 MG/0.4 ML SYG SC SCH (08:24)
[2016-12-24] MEDS: ISOSORBIDE DINITRATE 10 MG TAB PO SCH ×3 (08:24→21:25)
[2016-12-24] MEDS: CLOTRIMAZOLE 1% 30 GM CR TOP SCH ×2 (08:25→21:27)
[2016-12-24 08:31] LABS: BASOPHILS % 0.6 % (0.0-2.0); EOSINOPHILS # 0.2 10^3/ul (0.0-0.5); EOSINOPHILS % 2.3 % (0.0-7.0); HEMATOCRIT 40.9 % (42.0-52.0); HEMOGLOBIN 12.6 g/dl (14.0-18.0); LYMPHOCYTES # 1.8 10^3/ul (0.8-2.9); LYMPHOCYTES % 26.9 % (15.0-51.0); MEAN CORPUSCULAR HEMOGLOBIN 20.5 pg (29.0-33.0); MEAN CORPUSCULAR HGB CONC 30.8 g/dl (32.0-37.0); MEAN CORPUSCULAR VOLUME 66.6 fl (82.0-101.0); MEAN PLATELET VOLUME 9.9 fl (7.4-10.4); MONOCYTE # 0.7 10^3/ul (0.3-0.9); MONOCYTES % 9.9 % (0.0-11.0); NEUTROPHILS % 59.7 % (39.0-77.0); PLATELET COUNT 289 10^3/UL (140-415); RED BLOOD COUNT 6.14 10^6/ul (4.70-6.10); RED CELL DISTRIBUTION WIDTH 17.1 % (11.5-14.5); WHITE BLOOD COUNT 6.7 10^3/ul (4.8-10.8)
[2016-12-24 08:50] LABS: CREATININE 1.21 mg/dl (0.61-1.24); POTASSIUM 4.2 mmol/L (3.5-5.1)
--- NOTE | 2016-12-24 15:18 | CONS ---
Date/Time of Note Date/Time of Note DATE: 12/24/16 TIME: 15:13 Assessment/Plan Assessment/Plan Chief Complaint/Hosp Course IMPRESSION: 1. Chest pain. Assess for acute coronary syndrome.-negative trop x 3/lexiscan negative for ischemia with NL EF 2. Abnormal electrocardiogram with inferolateral T-wave inversions. 3. Hypertension. 4. Dyslipidemia. 5. History of possible myocardial infarction in [place] in the last 2 to 3 weeks. 6. Anemia, mild. 7. Hypernatremia, mild. 8. Possible nonsustained ventricular tachycardia x6 beats. 9. Bradycardia. Recc: -Tele -Continue BB/oral nitrates -Continue statin -Consider initiation of PPI and follow sx -Consider LHC for ongoing chest pain Problems: Consultation Date/Type/Reason Admit Date/Time Dec 20, 2016 at 22:45 Initial Consult Date 12/20/2016 Type of Consultation: cardiology Reason for Consultation chest pain Referring Provider: TASHIA RODRIGUEZ MD Exam/Review of Systems Vital Signs Vitals Vital Signs Date Time Temp Pulse Resp B/P Pulse Ox O2 Delivery O2 Flow Rate FiO2 12/24/16 12:05 74 12/24/16 11:41 98.1 18 114/70 94 12/21/16 04:10 Nasal Cannula 2.0 Intake and Output 12/23/16 12/23/16 12/24/16 15:00 23:00 07:00 Intake Total 1000 ml 850 ml Balance 1000 ml 850 ml Exam Review of Systems: CONSTITUTIONAL: No fevers, chills. PULMONARY: No sob CARDIOVASCULAR:ongoing chest pain GASTROINTESTINAL: No nausea/vomiting. GENITOURINARY: No hematuria/dysuria. MUSCULOSKELETAL: No myagias/arthalgias. PSYCHIATRIC: The patient denies depression. NEUROLOGIC: No weakness Constitutional: alert Psych: no complaints Head: normocephalic ENMT: mucosa pink and moist Neck: jvd (8-9 cm water), supple Respiratory: clear to auscultation Cardiovascular: regular rate and rhythm Gastrointestinal: non-tender, soft Musculoskeletal: muscle tone (normal) Extremities: edema (none) Neurological: other (No focal deficits) Results Result Diagram: 12/24/16 0806 12/24/16 0806 Results 24 hrs Laboratory Tests Test 12/24/16 08:06 White Blood Count 6.7 Red Blood Count 6.14 H Hemoglobin 12.6 L Hematocrit 40.9 L Mean Corpuscular Volume 66.6 L Mean Corpuscular Hemoglobin 20.5 L Mean Corpuscular Hemoglobin Concent 30.8 L Red Cell Distribution Width 17.1 H Platelet Count 289 Mean Platelet Volume 9.9 Neutrophils % 59.7 Lymphocytes % 26.9 Monocytes % 9.9 Eosinophils % 2.3 Basophils % 0.6 Nucleated Red Blood Cells % 0.0 Neutrophils # 4.0 Lymphocytes # 1.8 Monocytes # 0.7 Eosinophils # 0.2 Basophils # 0.0 Nucleated Red Blood Cells # 0.0 Sodium Level 142 Potassium Level 4.2 Chloride Level 107 Carbon Dioxide Level 25 Anion Gap 14 Blood Urea Nitrogen 16 Creatinine 1.21 Glucose Level 112 Calcium Level 9.0 Medications Medications Current Medications Aspirin (Ecotrin) 325 mg DAILY PO Last administered on 12/24/16 08:23; Admin Dose 325 MG; Start 12/21/16 at 09:00 Nitroglycerin (Nitroglycerin (Sl Tab) 0.4 Mg) 1 tab Q5M PRN SL ANGINA; Start 12/21/16 at 00:00 Metoprolol Tartrate (Lopressor) 25 mg BID PO Last administered on 12/24/16 08 :23; Admin Dose 25 MG; Start 12/21/16 at 09:00 Acetaminophen (Tylenol Tab) 500 mg Q4H PRN PO PAIN AND OR ELEVATED TEMP Last administered on 12/22/16 23:50; Admin Dose 500 MG; Start 12/21/16 at 00:00 Enoxaparin Sodium (Lovenox) 40 mg DAILY SC Last administered on 12/22/16 08: 34; Admin Dose 40 MG; Start 12/21/16 at 09:00 Morphine Sulfate (morphine) 2 mg Q4H PRN IV PAIN LEVEL 4-6; Start 12/21/16 at 00:00 Atorvastatin Calcium (Lipitor) 10 mg HS PO Last administered on 12/23/16 21: 02; Admin Dose 10 MG; Start 12/21/16 at 21:00 Clotrimazole (Lotrimin Cr) 1 applic BID TOP Last administered on 12/24/16 08: 25; Admin Dose 1 APPLIC; Start 12/21/16 at 21:00 Isosorbide Dinitrate (Isordil) 10 mg TID PO Last administered on 12/24/16 08: 24; Admin Dose 10 MG; Start 12/21/16 at 21:00 EUFEMIA BRIDGES Dec 24, 2016 15:18
[2016-12-24] MEDS ORDERED: DIPHENHYDRAMINE 50 MG CAP PO ONE (15:30)
[2016-12-24] MEDS ORDERED: DIAZEPAM 5 MG TAB PO SCH (15:30)
--- NOTE | 2016-12-24 16:23 | PDOCDIS ---
Discharge Instructions CONDITION Patient Condition: Good HOME CARE INSTRUCTIONS: Diet Instructions: Low Fat /Cholesterol ACTIVITY: Activity Restrictions: No Restrictions FOLLOW UP/APPOINTMENTS Follow-up Plan pmd within a week for routine check up & for work up of anemia & throat cyst patient to obtain ENT consult through his PMD for throat cyst Please give him copy of lexyscan, echo,renal ultrasound & all labs TASHIA RODRIGUEZ MD Dec 24, 2016 16:23
[2016-12-24] MEDS ORDERED: NIT4 SL (16:27)
[2016-12-24] MEDS ORDERED: ISOS10TA2 PO (16:27)
[2016-12-24] MEDS ORDERED: ASPI325T32 PO (16:27)
[2016-12-24] MEDS ORDERED: PANT40TA4 PO (16:27)
[2016-12-24] MEDS ORDERED: ATOR10TA65 PO (16:27)
[2016-12-24] MEDS ORDERED: METO-448 PO (16:27)
[2016-12-24] MEDS ORDERED: DIPHENHYDRAMINE 50 MG CAP PO SCH (16:30)
[2016-12-24] MEDS: ATORVASTATIN 10 MG TAB PO SCH (21:25)
[2016-12-24] MEDS: SOD CHLORIDE 0.9% 1,000 ML IV SCH (21:26)
[2016-12-25] VITALS (15 sets, daily range): BP systolic 114–134; BP diastolic 62–83; PULSE 65–86; RESP 18–20
[2016-12-25] MEDS: PANTOPRAZOLE (EC) 40 MG TAB PO SCH (05:44)
[2016-12-25 06:32] LABS: BASOPHIL # 0.1 10^3/ul (0.0-0.1); BASOPHILS % 0.8 % (0.0-2.0); EOSINOPHILS # 0.2 10^3/ul (0.0-0.5); EOSINOPHILS % 3.1 % (0.0-7.0); HEMATOCRIT 39.1 % (42.0-52.0); LYMPHOCYTES # 1.9 10^3/ul (0.8-2.9); LYMPHOCYTES % 29.8 % (15.0-51.0); MEAN CORPUSCULAR HEMOGLOBIN 20.3 pg (29.0-33.0); MEAN CORPUSCULAR HGB CONC 30.7 g/dl (32.0-37.0); MEAN CORPUSCULAR VOLUME 66.3 fl (82.0-101.0); MEAN PLATELET VOLUME 10.2 fl (7.4-10.4); MONOCYTE # 0.7 10^3/ul (0.3-0.9); MONOCYTES % 11.6 % (0.0-11.0); NEUTROPHIL # 3.5 10^3/ul (1.6-7.5); NEUTROPHILS % 54.2 % (39.0-77.0); PLATELET COUNT 278 10^3/UL (140-415); RED CELL DISTRIBUTION WIDTH 17.8 % (11.5-14.5); WHITE BLOOD COUNT 6.4 10^3/ul (4.8-10.8)
[2016-12-25 06:53] LABS: IRON 47 ug/dl (35-150)
[2016-12-25 07:02] LABS: TOTAL IRON BINDING CAPACITY 315 ug/dl (241-421)
[2016-12-25 07:05] LABS: INR 0.97; PROTIME 12.9 Sec (12.2-14.2)
[2016-12-25 07:06] LABS: PARTIAL THROMBOPLASTIN TIME 28.9 Sec (25.0-35.0)
[2016-12-25 07:10] LABS: CALCIUM 9.1 mg/dl (8.4-10.2); CREATININE 1.25 mg/dl (0.61-1.24); POTASSIUM 3.9 mmol/L (3.5-5.1)
--- NOTE | 2016-12-25 08:39 | PN ---
DATE: 12/24/2016 SUBJECTIVE: The patient reported the chest pain has improved. The patient had a negative Lexiscan and an echo with normal EF. The patient had a negative troponin. The patient is reporting that he had a throat cyst detected while he was in the hospital in [facility]. I advised him to follow up with his PMD to obtain ENT consult as an outpatient. The patient has known problem in eating and has no cough or dysphagia. The patient also was noted to have small renal stone and renal cyst for which patient has been advised to follow up as an outpatient. The patient persistently has hypochromic mi crocytic anemia, although hemoglobin is between 12.2 through 12.6. The patient again was advised to follow up with his PMD for further workup. Initially, plan was to start him on Protonix and monito r him for symptoms. However, Dr. Jya subsequently decided to do cardiac cath. PHYSICAL EXAMINATION: GENERAL: The patient is conscious, awake, alert. VITAL SIGNS: Temperature 98.3, pulse 70, respirations 18, blood pressure 117/61, O2 saturation 95% on room air. NECK: No obvious mass. CHEST: Clear. CARDIOVASCULAR: S1, S2 normal. No murmur. ABDOMEN: Soft, nondistended, nontender. EXTREMITIES: No leg edema. NEUROLOGIC: The patient is awake, alert. IMPRESSION: As above, patient will undergo cardiac catheterization tomorrow. We will start him on some IV fluids. The patient did have slight bump in his creatinine from the day of admission. The patient's baseline creatinine is 1.2 and today he is at his baseline. We will continue to monitor. Dictated By: TASHIA LEDBETTER/JAMIE Conf#: [id number] DID#: [id number]
[2016-12-25] MEDS ORDERED: DIAZEPAM 5 MG TAB PO SCH (09:00)
[2016-12-25] MEDS: ENOXAPARIN 40 MG/0.4 ML SYG SC SCH (09:00)
[2016-12-25] MEDS: CLOTRIMAZOLE 1% 30 GM CR TOP SCH ×2 (09:00→21:00)
[2016-12-25] MEDS ORDERED: DIPHENHYDRAMINE 50 MG CAP PO SCH (09:00)
[2016-12-25] MEDS: SOD CHLORIDE 0.9% 1,000 ML IV SCH (09:40)
[2016-12-25] MEDS: ASPIRIN (EC) 325 MG TAB PO SCH (10:04)
[2016-12-25] MEDS: ISOSORBIDE DINITRATE 10 MG TAB PO SCH ×3 (10:04→22:34)
[2016-12-25] MEDS: METOPROLOL 25 MG TAB PO SCH ×2 (10:05→22:34)
--- NOTE | 2016-12-25 12:44 | CONS ---
Date/Time of Note Date/Time of Note DATE: 12/25/16 TIME: 12:40 Assessment/Plan Assessment/Plan Chief Complaint/Hosp Course IMPRESSION: 1. Chest pain. Assess for acute coronary syndrome.-negative trop x 3/lexiscan negative for ischemia with NL EF. CP resolved 2. Abnormal electrocardiogram with inferolateral T-wave inversions. 3. Hypertension. 4. Dyslipidemia. 5. History of possible myocardial infarction in [place] in the last 2 to 3 weeks. 6. Anemia, mild. 7. Hypernatremia, mild. 8. Possible nonsustained ventricular tachycardia x6 beats. 9. Bradycardia. Recc: -Tele -Continue BB/oral nitrates -Continue statin -Continue PPI -Patient offered LHC today but refused and states that he does not want a cath at this time. -OK for d/c planning from cardiology standpoint with outpatient f/u and will give card for f/u info Problems: Consultation Date/Type/Reason Admit Date/Time Dec 20, 2016 at 22:45 Initial Consult Date 12/20/2016 Type of Consultation: cardiology Reason for Consultation chest pain Referring Provider: TASHIA RODRIGUEZ MD Exam/Review of Systems Vital Signs Vitals Vital Signs Date Time Temp Pulse Resp B/P Pulse Ox O2 Delivery O2 Flow Rate FiO2 12/25/16 12:02 74 12/25/16 11:45 98.9 20 114/62 94 Intake and Output 12/24/16 12/24/16 12/25/16 15:00 23:00 07:00 Intake Total 2000 ml 1080 ml Balance 2000 ml 1080 ml Exam Review of Systems: CONSTITUTIONAL: No fevers, chills. PULMONARY: No sob CARDIOVASCULAR: No chest pain/palpitations GASTROINTESTINAL: No nausea/vomiting. GENITOURINARY: No hematuria/dysuria. MUSCULOSKELETAL: No myagias/arthalgias. PSYCHIATRIC: The patient denies depression. NEUROLOGIC: No weakness Constitutional: alert Psych: no complaints Head: normocephalic ENMT: mucosa pink and moist Neck: jvd, supple Respiratory: diminished breath sounds Cardiovascular: regular rate and rhythm Gastrointestinal: non-tender, soft Musculoskeletal: muscle tone (normal) Extremities: edema (none) Neurological: other (No focal deficits) Results Result Diagram: 12/25/16 0543 12/25/16 0543 Results 24 hrs Laboratory Tests Test 12/25/16 05:43 12/25/16 05:44 White Blood Count 6.4 Red Blood Count 5.90 Hemoglobin 12.0 L Hematocrit 39.1 L Mean Corpuscular Volume 66.3 L Mean Corpuscular Hemoglobin 20.3 L Mean Corpuscular Hemoglobin Concent 30.7 L Red Cell Distribution Width 17.8 H Platelet Count 278 Mean Platelet Volume 10.2 Neutrophils % 54.2 Lymphocytes % 29.8 Monocytes % 11.6 H Eosinophils % 3.1 Basophils % 0.8 Nucleated Red Blood Cells % 0.0 Neutrophils # 3.5 Lymphocytes # 1.9 Monocytes # 0.7 Eosinophils # 0.2 Basophils # 0.1 Nucleated Red Blood Cells # 0.0 Prothrombin Time 12.9 Prothrombin Time Ratio 1.0 INR International Normalized Ratio 0.97 Activated Partial Thromboplast Time 28.9 Sodium Level 146 H Potassium Level 3.9 Chloride Level 108 Carbon Dioxide Level 25 Anion Gap 17 H Blood Urea Nitrogen 21 H Creatinine 1.25 H Glucose Level 132 Calcium Level 9.1 Iron Level 47 Total Iron Binding Capacity 315 Percent Iron Saturation 15 L Ferritin 201.0 Medications Medications Current Medications Aspirin (Ecotrin) 325 mg DAILY PO Last administered on 12/25/16 10:04; Admin Dose 325 MG; Start 12/21/16 at 09:00 Nitroglycerin (Nitroglycerin (Sl Tab) 0.4 Mg) 1 tab Q5M PRN SL ANGINA; Start 12/21/16 at 00:00 Metoprolol Tartrate (Lopressor) 25 mg BID PO Last administered on 12/25/16 10 :05; Admin Dose 25 MG; Start 12/21/16 at 09:00 Acetaminophen (Tylenol Tab) 500 mg Q4H PRN PO PAIN AND OR ELEVATED TEMP Last administered on 12/22/16 23:50; Admin Dose 500 MG; Start 12/21/16 at 00:00 Enoxaparin Sodium (Lovenox) 40 mg DAILY SC Last administered on 12/22/16 08: 34; Admin Dose 40 MG; Start 12/21/16 at 09:00 Morphine Sulfate (morphine) 2 mg Q4H PRN IV PAIN LEVEL 4-6; Start 12/21/16 at 00:00 Atorvastatin Calcium (Lipitor) 10 mg HS PO Last administered on 12/24/16 21: 25; Admin Dose 10 MG; Start 12/21/16 at 21:00 Clotrimazole (Lotrimin Cr) 1 applic BID TOP Last administered on 12/24/16 21: 27; Admin Dose 1 APPLIC; Start 12/21/16 at 21:00 Isosorbide Dinitrate (Isordil) 10 mg TID PO Last administered on 12/25/16 10: 04; Admin Dose 10 MG; Start 12/21/16 at 21:00 Pantoprazole 40 mg 40 mg DAILY@06 PO ; Start 12/25/16 at 06:00 Sodium Chloride (NS) 1,000 ml @ 60 mls/hr [id number] IV Last administered on 21:26; Admin Dose 60 MLS/HR; Start 12/24/16 at 17:00 Diazepam (Valium) 5 mg OC PO ; Start 12/25/16 at 09:00; Stop 12/25/16 at 16:00 Diphenhydramine HCl (Benadryl) 50 mg OC PO ; Start 12/25/16 at 09:00; Stop at 16:00 EUFEMIA BRIDGES Dec 25, 2016 12:44
--- NOTE | 2016-12-25 13:35 | RADRPT ---
Vent Rate: 74 bpm RR Interval: 0 msec AL Interval: 200 msec QRS Duration: 98 msec QT Interval: 390 msec QTC Interval: 432 msec P-R-T [place]: 47 - 65 - 15 degrees Normal sinus rhythm Nonspecific T wave abnormality Abnormal ECG Electronically Signed By: Parish Clark [id number]
--- NOTE | 2016-12-25 17:19 | DS ---
Date/Time of Note Date/Time of Note DATE: 12/25/16 TIME: 17:19 Discharge Summary Admission/Discharge Info Admit Date/Time Dec 20, 2016 at 22:45 Discharge Date/Time Patient Condition: Stable Hospital Course IMPRESSION: 1. Chest pain. Assess for acute coronary syndrome.-negative trop x 3/lexiscan negative for ischemia with NL EF. CP resolved 2. Abnormal electrocardiogram with inferolateral T-wave inversions. 3. Hypertension. 4. Dyslipidemia. 5. History of possible myocardial infarction in [place] in the last 2 to 3 weeks. 6. Anemia, mild. 7. Hypernatremia, mild. 8. Possible nonsustained ventricular tachycardia x6 beats. 9. Bradycardia. Recc: -Tele -Continue BB/oral nitrates -Continue statin -Continue PPI -Patient offered LHC today but refused and states that he does not want a cath at this time. -OK for d/c planning from cardiology standpoint with outpatient f/u and will give card for f/u info Home Meds Active Scripts Pantoprazole* (Pantoprazole*) 40 Mg Tablet., 40 MG PO DAILY@06 for 30 Days, # 30 Prov:TASHIA RODRIGUEZ MD 12/24/16 Aspirin (Aspir-Rosemary) 325 Mg Tablet., 325 MG PO DAILY for 30 Days, #30 Prov:TASHIA RODRIGUEZ MD 12/24/16 Nitroglycerin* (Nitrostat*) 0.4 Mg Tab.subl, 1 TAB SL Q5M Y for ANGINA, #30 Prov:TASHIA RODRIGUEZ MD 12/24/16 Metoprolol Tartrate* (Lopressor*) 25 Mg Tab, 25 MG PO BID, #60 TAB Prov:TASHIA RODRIGUEZ MD 12/24/16 Isosorbide Dinitrate* (Isordil*) 10 Mg Tablet, 10 MG PO TID for 30 Days, #90 TAB Prov:TASHIA RODRIGUEZ MD 12/24/16 Atorvastatin (Atorvastatin) 10 Mg Tablet, 10 MG PO HS for 30 Days, TAB Prov:TASHIA RODRIGUEZ MD 12/24/16 Reported Medications Amoxicillin* (Amoxicillin*) 500 Mg Cap, 500 MG PO Q8, CAP 03/23/14 Follow-up Plan pmd within a week for routine check up & for work up of anemia & throat cyst patient to obtain ENT consult through his PMD for throat cyst Please give him copy of lexyscan, echo,renal ultrasound & all labs Primary Care Provider Saida Cat MD Pending Labs Laboratory Tests Test 12/25/16 05:43 12/25/16 05:44 White Blood Count 6.410^3/ul (4.8-10.8) Red Blood Count 5.9010^6/ul (4.70-6.10) Hemoglobin 12.0g/dl (14.0-18.0) Hematocrit 39.1% (42.0-52.0) Mean Corpuscular Volume 66.3fl (82.0-101.0) Mean Corpuscular Hemoglobin 20.3pg (29.0-33.0) Mean Corpuscular Hemoglobin Concent 30.7g/dl (32.0-37.0) Red Cell Distribution Width 17.8% (11.5-14.5) Platelet Count 69339^3/UL (140-415) Mean Platelet Volume 10.2fl (7.4-10.4) Neutrophils % 54.2% (39.0-77.0) Lymphocytes % 29.8% (15.0-51.0) Monocytes % 11.6% (0.0-11.0) Eosinophils % 3.1% (0.0-7.0) Basophils % 0.8% (0.0-2.0) Nucleated Red Blood Cells % 0.0/100WBC (0.0-0.0) Neutrophils # 3.510^3/ul (1.6-7.5) Lymphocytes # 1.910^3/ul (0.8-2.9) Monocytes # 0.710^3/ul (0.3-0.9) Eosinophils # 0.210^3/ul (0.0-0.5) Basophils # 0.110^3/ul (0.0-0.1) Nucleated Red Blood Cells # 0.010^3/ul (0.0-0.0) Prothrombin Time 12.9Sec (12.2-14.2) Prothrombin Time Ratio 1.0 INR International Normalized Ratio 0.97 Activated Partial Thromboplast Time 28.9Sec (25.0-35.0) Sodium Level 146mmol/L (135-144) Potassium Level 3.9mmol/L (3.5-5.1) Chloride Level 108mmol/L (97-110) Carbon Dioxide Level 25mmol/L (21-31) Anion Gap 17 (8-16) Blood Urea Nitrogen 21mg/dl (7-20) Creatinine 1.25mg/dl (0.61-1.24) Glucose Level 132mg/dl (70-220) Calcium Level 9.1mg/dl (8.4-10.2) Iron Level 47ug/dl (35-150) Total Iron Binding Capacity 315ug/dl (241-421) Percent Iron Saturation 15% SAT (22-52) Ferritin 201.0ng/ml (11.1-264.0) LIANA BURCH Dec 25, 2016 17:19
--- NOTE | 2016-12-25 18:47 | PN ---
Date/Time of Note Date/Time of Note DATE: 12/25/16 TIME: 18:46 Assessment/Plan Lines/Catheters IV Catheter Type (from [facility]rs[facility]): Saline Lock Assessment/Plan Assessment/Plan - Chest pain. Assess for acute coronary syndrome - per cardio - trop x 3. - Status post Lexiscan yesterday - Hypertension. Continue metoprolol. - Dyslipidemia. Continue Lipitor. - Nonsustained ventricular tachycardia x6 beats 2 days ago. Further recommendations based on clinical course. Plan of care discussed with Dr. Haywood Subjective 24 Hr Interval Summary Free Text/Dictation Cancel Discharge- C/O CHEST PAIN Exam/Review of Systems Vital Signs Vitals Vital Signs Date Time Temp Pulse Resp B/P Pulse Ox O2 Delivery O2 Flow Rate FiO2 12/25/16 16:06 73 12/25/16 15:31 98.9 20 117/74 94 Intake and Output 12/24/16 12/24/16 12/25/16 15:00 23:00 07:00 Intake Total 2000 ml 1080 ml Balance 2000 ml 1080 ml Results Result Diagram: 12/25/16 0543 12/25/16 0543 Results 24 hrs Laboratory Tests Test 12/25/16 05:43 12/25/16 05:44 White Blood Count 6.4 Red Blood Count 5.90 Hemoglobin 12.0 L Hematocrit 39.1 L Mean Corpuscular Volume 66.3 L Mean Corpuscular Hemoglobin 20.3 L Mean Corpuscular Hemoglobin Concent 30.7 L Red Cell Distribution Width 17.8 H Platelet Count 278 Mean Platelet Volume 10.2 Neutrophils % 54.2 Lymphocytes % 29.8 Monocytes % 11.6 H Eosinophils % 3.1 Basophils % 0.8 Nucleated Red Blood Cells % 0.0 Neutrophils # 3.5 Lymphocytes # 1.9 Monocytes # 0.7 Eosinophils # 0.2 Basophils # 0.1 Nucleated Red Blood Cells # 0.0 Prothrombin Time 12.9 Prothrombin Time Ratio 1.0 INR International Normalized Ratio 0.97 Activated Partial Thromboplast Time 28.9 Sodium Level 146 H Potassium Level 3.9 Chloride Level 108 Carbon Dioxide Level 25 Anion Gap 17 H Blood Urea Nitrogen 21 H Creatinine 1.25 H Glucose Level 132 Calcium Level 9.1 Iron Level 47 Total Iron Binding Capacity 315 Percent Iron Saturation 15 L Ferritin 201.0 Medications Medications Current Medications Aspirin (Ecotrin) 325 mg DAILY PO Last administered on 12/25/16 10:04; Admin Dose 325 MG; Start 12/21/16 at 09:00 Nitroglycerin (Nitroglycerin (Sl Tab) 0.4 Mg) 1 tab Q5M PRN SL ANGINA; Start 12/21/16 at 00:00 Metoprolol Tartrate (Lopressor) 25 mg BID PO Last administered on 12/25/16 10 :05; Admin Dose 25 MG; Start 12/21/16 at 09:00 Acetaminophen (Tylenol Tab) 500 mg Q4H PRN PO PAIN AND OR ELEVATED TEMP Last administered on 12/22/16 23:50; Admin Dose 500 MG; Start 12/21/16 at 00:00 Enoxaparin Sodium (Lovenox) 40 mg DAILY SC Last administered on 12/22/16 08: 34; Admin Dose 40 MG; Start 12/21/16 at 09:00 Morphine Sulfate (morphine) 2 mg Q4H PRN IV PAIN LEVEL 4-6; Start 12/21/16 at 00:00 Atorvastatin Calcium (Lipitor) 10 mg HS PO Last administered on 12/24/16 21: 25; Admin Dose 10 MG; Start 12/21/16 at 21:00 Clotrimazole (Lotrimin Cr) 1 applic BID TOP Last administered on 12/24/16 21: 27; Admin Dose 1 APPLIC; Start 12/21/16 at 21:00 Isosorbide Dinitrate (Isordil) 10 mg TID PO Last administered on 12/25/16 17: 40; Admin Dose 10 MG; Start 12/21/16 at 21:00 Pantoprazole 40 mg 40 mg DAILY@06 PO ; Start 12/25/16 at 06:00 Sodium Chloride (NS) 1,000 ml @ 60 mls/hr [id number] IV Last administered on 21:26; Admin Dose 60 MLS/HR; Start 12/24/16 at 17:00 LIANA BURCH Dec 25, 2016 18:47
[2016-12-25] MEDS: NITROGLYCERIN (SL) 0.4 MG TAB SL PRN ×2 (19:04→19:10)
[2016-12-25] MEDS: ACETAMINOPHEN 500 MG TAB PO PRN (19:09)
[2016-12-25] MEDS: ATORVASTATIN 10 MG TAB PO SCH (22:34)
[2016-12-26] VITALS (13 sets, daily range): BP systolic 112–127; BP diastolic 70–76; PULSE 43–75; RESP 18–20
[2016-12-26] MEDS: SOD CHLORIDE 0.9% 1,000 ML IV SCH ×2 (02:17→20:55)
[2016-12-26] MEDS: PANTOPRAZOLE (EC) 40 MG TAB PO SCH (05:48)
[2016-12-26 08:52] LABS: BASOPHILS % 0.5 % (0.0-2.0); EOSINOPHILS # 0.2 10^3/ul (0.0-0.5); EOSINOPHILS % 3.6 % (0.0-7.0); HEMATOCRIT 38.2 % (42.0-52.0); HEMOGLOBIN 11.5 g/dl (14.0-18.0); LYMPHOCYTES # 2.1 10^3/ul (0.8-2.9); LYMPHOCYTES % 33.6 % (15.0-51.0); MEAN CORPUSCULAR HEMOGLOBIN 20.4 pg (29.0-33.0); MEAN CORPUSCULAR HGB CONC 30.1 g/dl (32.0-37.0); MEAN CORPUSCULAR VOLUME 67.7 fl (82.0-101.0); MEAN PLATELET VOLUME 10.8 fl (7.4-10.4); MONOCYTE # 0.5 10^3/ul (0.3-0.9); MONOCYTES % 8.5 % (0.0-11.0); NEUTROPHIL # 3.4 10^3/ul (1.6-7.5); NEUTROPHILS % 53.3 % (39.0-77.0); PLATELET COUNT 268 10^3/UL (140-415); RED BLOOD COUNT 5.64 10^6/ul (4.70-6.10); RED CELL DISTRIBUTION WIDTH 17.7 % (11.5-14.5); WHITE BLOOD COUNT 6.4 10^3/ul (4.8-10.8)
[2016-12-26] MEDS: ENOXAPARIN 40 MG/0.4 ML SYG SC SCH (09:00)
[2016-12-26] MEDS: CLOTRIMAZOLE 1% 30 GM CR TOP SCH ×2 (09:00→20:57)
[2016-12-26 09:10] LABS: CALCIUM 9.1 mg/dl (8.4-10.2); CREATININE 1.18 mg/dl (0.61-1.24); POTASSIUM 4.2 mmol/L (3.5-5.1)
[2016-12-26] MEDS: ISOSORBIDE DINITRATE 10 MG TAB PO SCH ×3 (10:21→20:56)
[2016-12-26] MEDS: METOPROLOL 25 MG TAB PO SCH ×2 (10:21→20:56)
[2016-12-26] MEDS: ASPIRIN (EC) 325 MG TAB PO SCH (10:21)
--- NOTE | 2016-12-26 16:10 | CONS ---
Date/Time of Note Date/Time of Note DATE: 12/26/16 TIME: 16:08 Assessment/Plan Assessment/Plan Chief Complaint/Hosp Course IMPRESSION: 1. Chest pain. Assess for acute coronary syndrome.-negative trop x 3/lexiscan negative for ischemia with NL EF. CP resolved 2. Abnormal electrocardiogram with inferolateral T-wave inversions. 3. Hypertension. 4. Dyslipidemia. 5. History of possible myocardial infarction in [place] in the last 2 to 3 weeks. 6. Anemia, mild. 7. Hypernatremia, mild. 8. Possible nonsustained ventricular tachycardia x6 beats.-no recurrence 9. Bradycardia. Recc: -Tele -Continue BB/oral nitrates -Continue statin -Continue PPI -Patient offered LHC but refused and states that he does not want a cath at this time. -OK for d/c planning from cardiology standpoint with outpatient f/u and will give card for f/u info Problems: Consultation Date/Type/Reason Admit Date/Time Dec 20, 2016 at 22:45 Initial Consult Date 12/20/2016 Type of Consultation: cardiology Reason for Consultation Chest paikn Referring Provider: TASHIA RODRIGUEZ MD Exam/Review of Systems Vital Signs Vitals Vital Signs Date Time Temp Pulse Resp B/P Pulse Ox O2 Delivery O2 Flow Rate FiO2 12/26/16 15:35 98.0 72 18 118/70 100 Intake and Output 12/25/16 12/25/16 12/26/16 15:00 23:00 07:00 Intake Total 960 ml 500 ml Balance 960 ml 500 ml Exam Review of Systems: CONSTITUTIONAL: No fevers, chills. PULMONARY: No sob CARDIOVASCULAR: No chest pain/palpitations GASTROINTESTINAL: No nausea/vomiting. GENITOURINARY: No hematuria/dysuria. MUSCULOSKELETAL: No myagias/arthalgias. PSYCHIATRIC: The patient denies depression. NEUROLOGIC: No weakness Constitutional: alert, oriented Psych: no complaints Head: normocephalic ENMT: mucosa pink and moist Neck: jvd (9 cm water), supple Respiratory: clear to auscultation Cardiovascular: regular rate and rhythm Gastrointestinal: non-tender, soft Musculoskeletal: muscle tone (normal) Extremities: edema (none) Neurological: other (No focal deficits) Results Result Diagram: 12/26/16 0740 12/26/16 0740 Results 24 hrs Laboratory Tests Test 12/25/16 19:16 12/26/16 07:40 Troponin I < 0.012 White Blood Count 6.4 Red Blood Count 5.64 Hemoglobin 11.5 L Hematocrit 38.2 L Mean Corpuscular Volume 67.7 L Mean Corpuscular Hemoglobin 20.4 L Mean Corpuscular Hemoglobin Concent 30.1 L Red Cell Distribution Width 17.7 H Platelet Count 268 Mean Platelet Volume 10.8 H Neutrophils % 53.3 Lymphocytes % 33.6 Monocytes % 8.5 Eosinophils % 3.6 Basophils % 0.5 Nucleated Red Blood Cells % 0.0 Neutrophils # 3.4 Lymphocytes # 2.1 Monocytes # 0.5 Eosinophils # 0.2 Basophils # 0.0 Nucleated Red Blood Cells # 0.0 Sodium Level 145 H Potassium Level 4.2 Chloride Level 109 Carbon Dioxide Level 28 Anion Gap 12 Blood Urea Nitrogen 18 Creatinine 1.18 Glucose Level 96 Calcium Level 9.1 Medications Medications Current Medications Aspirin (Ecotrin) 325 mg DAILY PO Last administered on 12/26/16 10:21; Admin Dose 325 MG; Start 12/21/16 at 09:00 Nitroglycerin (Nitroglycerin (Sl Tab) 0.4 Mg) 1 tab Q5M PRN SL ANGINA Last administered on 12/25/16 19:04; Admin Dose 1 TAB; Start 12/21/16 at 00:00 Metoprolol Tartrate (Lopressor) 25 mg BID PO Last administered on 12/26/16 10 :21; Admin Dose 25 MG; Start 12/21/16 at 09:00 Acetaminophen (Tylenol Tab) 500 mg Q4H PRN PO PAIN AND OR ELEVATED TEMP Last administered on 12/25/16 19:09; Admin Dose 500 MG; Start 12/21/16 at 00:00 Enoxaparin Sodium (Lovenox) 40 mg DAILY SC Last administered on 12/22/16 08: 34; Admin Dose 40 MG; Start 12/21/16 at 09:00 Morphine Sulfate (morphine) 2 mg Q4H PRN IV PAIN LEVEL 4-6; Start 12/21/16 at 00:00 Atorvastatin Calcium (Lipitor) 10 mg HS PO Last administered on 12/25/16 22: 34; Admin Dose 10 MG; Start 12/21/16 at 21:00 Clotrimazole (Lotrimin Cr) 1 applic BID TOP Last administered on 12/24/16 21: 27; Admin Dose 1 APPLIC; Start 12/21/16 at 21:00 Isosorbide Dinitrate (Isordil) 10 mg TID PO Last administered on 12/26/16 13: 37; Admin Dose 10 MG; Start 12/21/16 at 21:00 Pantoprazole 40 mg 40 mg DAILY@06 PO Last administered on 12/26/16 05:48; Admin Dose 40 MG; Start 12/25/16 at 06:00 Sodium Chloride (NS) 1,000 ml @ 60 mls/hr [id number] IV Last administered on 02:17; Admin Dose 60 MLS/HR; Start 12/24/16 at 17:00 EUFEMIA BRIDGES Dec 26, 2016 16:10
--- NOTE | 2016-12-26 16:29 | PN ---
Date/Time of Note Date/Time of Note DATE: 12/26/16 TIME: 16:26 Assessment/Plan VTE Prophylaxis VTE Prophylaxis Intervention: SCD's Lines/Catheters IV [facility] Type (from [facility] Saline Lock Urinary Cath still in place: No Assessment/Plan Chief Complaint/Hosp Course Patient refused cardiac cath, denies chest pain, voids without any problems, BUN and creat are wnl. D/w Dr Jay, d/c home Assessment/Plan - Chest pain. Assess for acute coronary syndrome.-negative trop x 3. Status post Lexiscan today. - Hypertension. Continue metoprolol. - Dyslipidemia. Continue Lipitor. - Nonsustained ventricular tachycardia x6 beats 2 days ago. Further recommendations based on clinical course. Plan of care discussed with Dr. Haywood Problems: Exam/Review of Systems Vital Signs Vitals Vital Signs Date Time Temp Pulse Resp B/P Pulse Ox O2 Delivery O2 Flow Rate FiO2 12/26/16 15:35 98.0 72 18 118/70 100 Intake and Output 12/25/16 12/25/16 12/26/16 14:59 22:59 06:59 Intake Total 960 ml 500 ml Balance 960 ml 500 ml Exam Constitutional: alert, oriented Head: normocephalic Neck: supple Respiratory: normal air movement Cardiovascular: nl pulses, regular rate and rhythm Gastrointestinal: non-tender, soft Musculoskeletal: nl extremities to inspection Extremities: normal pulses Results Result Diagram: 12/26/16 0740 12/26/16 0740 Results 24 hrs Laboratory Tests Test 12/25/16 19:16 12/26/16 07:40 Troponin I < 0.012 White Blood Count 6.4 Red Blood Count 5.64 Hemoglobin 11.5 L Hematocrit 38.2 L Mean Corpuscular Volume 67.7 L Mean Corpuscular Hemoglobin 20.4 L Mean Corpuscular Hemoglobin Concent 30.1 L Red Cell Distribution Width 17.7 H Platelet Count 268 Mean Platelet Volume 10.8 H Neutrophils % 53.3 Lymphocytes % 33.6 Monocytes % 8.5 Eosinophils % 3.6 Basophils % 0.5 Nucleated Red Blood Cells % 0.0 Neutrophils # 3.4 Lymphocytes # 2.1 Monocytes # 0.5 Eosinophils # 0.2 Basophils # 0.0 Nucleated Red Blood Cells # 0.0 Sodium Level 145 H Potassium Level 4.2 Chloride Level 109 Carbon Dioxide Level 28 Anion Gap 12 Blood Urea Nitrogen 18 Creatinine 1.18 Glucose Level 96 Calcium Level 9.1 Medications Medications Current Medications Aspirin (Ecotrin) 325 mg DAILY PO Last administered on 12/26/16 10:21; Admin Dose 325 MG; Start 12/21/16 at 09:00 Nitroglycerin (Nitroglycerin (Sl Tab) 0.4 Mg) 1 tab Q5M PRN SL ANGINA Last administered on 12/25/16 19:04; Admin Dose 1 TAB; Start 12/21/16 at 00:00 Metoprolol Tartrate (Lopressor) 25 mg BID PO Last administered on 12/26/16 10 :21; Admin Dose 25 MG; Start 12/21/16 at 09:00 Acetaminophen (Tylenol Tab) 500 mg Q4H PRN PO PAIN AND OR ELEVATED TEMP Last administered on 12/25/16 19:09; Admin Dose 500 MG; Start 12/21/16 at 00:00 Enoxaparin Sodium (Lovenox) 40 mg DAILY SC Last administered on 12/22/16 08: 34; Admin Dose 40 MG; Start 12/21/16 at 09:00 Morphine Sulfate (morphine) 2 mg Q4H PRN IV PAIN LEVEL 4-6; Start 12/21/16 at 00:00 Atorvastatin Calcium (Lipitor) 10 mg HS PO Last administered on 12/25/16 22: 34; Admin Dose 10 MG; Start 12/21/16 at 21:00 Clotrimazole (Lotrimin Cr) 1 applic BID TOP Last administered on 12/24/16 21: 27; Admin Dose 1 APPLIC; Start 12/21/16 at 21:00 Isosorbide Dinitrate (Isordil) 10 mg TID PO Last administered on 12/26/16 13: 37; Admin Dose 10 MG; Start 12/21/16 at 21:00 Pantoprazole 40 mg 40 mg DAILY@06 PO Last administered on 12/26/16 05:48; Admin Dose 40 MG; Start 12/25/16 at 06:00 Sodium Chloride (NS) 1,000 ml @ 60 mls/hr [id number] IV Last administered on 02:17; Admin Dose 60 MLS/HR; Start 12/24/16 at 17:00 JEN CROOKS Dec 26, 2016 16:29
[2016-12-26] MEDS: ATORVASTATIN 10 MG TAB PO SCH (20:56)
[2016-12-26] MEDS: ACETAMINOPHEN 500 MG TAB PO PRN (23:41)
[2016-12-27 00:26] VITALS: PULSE 68
[2016-12-27 04:12] VITALS: BP 119/70; RESP 18
[2016-12-27 04:14] VITALS: PULSE 59
[2016-12-27 04:39] VITALS: PULSE 41
[2016-12-27] MEDS: PANTOPRAZOLE (EC) 40 MG TAB PO SCH (05:50)
[2016-12-27 07:48] VITALS: BP 133/83; RESP 20
[2016-12-27 08:14] VITALS: PULSE 63
[2016-12-27] MEDS: ASPIRIN (EC) 325 MG TAB PO SCH (08:34)
[2016-12-27] MEDS: ISOSORBIDE DINITRATE 10 MG TAB PO SCH (08:34)
[2016-12-27] MEDS: METOPROLOL 25 MG TAB PO SCH (08:34)
[2016-12-27] MEDS: ENOXAPARIN 40 MG/0.4 ML SYG SC SCH (08:39)
[2016-12-27] MEDS: CLOTRIMAZOLE 1% 30 GM CR TOP SCH (08:39)
--- NOTE | 2016-12-27 10:52 | PN ---
Date/Time of Note Date/Time of Note DATE: 12/27/16 TIME: 10:52 Assessment/Plan VTE Prophylaxis VTE Prophylaxis Intervention: other Lines/Catheters IV [facility]from [facility] Saline Lock Urinary Cath still in place: No Assessment/Plan Chief Complaint/Hosp Course - Chest pain. Assess for acute coronary syndrome.-negative trop x 3. Status post Lexiscan today. - Hypertension. Continue metoprolol. - Dyslipidemia. Continue Lipitor. - Nonsustained ventricular tachycardia x6 beats 2 days ago. Problems: Subjective 24 Hr Interval Summary Free Text/Dictation Patient stable for discharge, awaiting dispo Exam/Review of Systems Vital Signs Vitals Vital Signs Date Time Temp Pulse Resp B/P Pulse Ox O2 Delivery O2 Flow Rate FiO2 12/27/16 08:14 63 12/27/16 07:48 98.5 20 133/83 97 Intake and Output 12/26/16 12/26/16 12/27/16 15:00 23:00 07:00 Intake Total 1860 ml 1100 ml Balance 1860 ml 1100 ml Exam Constitutional: well developed Head: atraumatic, normocephalic Neck: supple Respiratory: clear to auscultation Cardiovascular: regular rate and rhythm Gastrointestinal: non-tender, soft Extremities: normal pulses Results Result Diagram: 12/26/16 0740 12/26/16 0740 Medications Medications Current Medications Aspirin (Ecotrin) 325 mg DAILY PO Last administered on 12/27/16 08:34; Admin Dose 325 MG; Start 12/21/16 at 09:00 Nitroglycerin (Nitroglycerin (Sl Tab) 0.4 Mg) 1 tab Q5M PRN SL ANGINA Last administered on 12/25/16 19:04; Admin Dose 1 TAB; Start 12/21/16 at 00:00 Metoprolol Tartrate (Lopressor) 25 mg BID PO Last administered on 12/27/16 08 :34; Admin Dose 25 MG; Start 12/21/16 at 09:00 Acetaminophen (Tylenol Tab) 500 mg Q4H PRN PO PAIN AND OR ELEVATED TEMP Last administered on 12/26/16 23:41; Admin Dose 500 MG; Start 12/21/16 at 00:00 Enoxaparin Sodium (Lovenox) 40 mg DAILY SC Last administered on 12/27/16 08: 39; Admin Dose 40 MG; Start 12/21/16 at 09:00 Morphine Sulfate (morphine) 2 mg Q4H PRN IV PAIN LEVEL 4-6; Start 12/21/16 at 00:00 Atorvastatin Calcium (Lipitor) 10 mg HS PO Last administered on 12/26/16 20: 56; Admin Dose 10 MG; Start 12/21/16 at 21:00 Clotrimazole (Lotrimin Cr) 1 applic BID TOP Last administered on 12/24/16 21: 27; Admin Dose 1 APPLIC; Start 12/21/16 at 21:00 Isosorbide Dinitrate (Isordil) 10 mg TID PO Last administered on 12/27/16 08: 34; Admin Dose 10 MG; Start 12/21/16 at 21:00 Pantoprazole 40 mg 40 mg DAILY@06 PO Last administered on 12/27/16 05:50; Admin Dose 40 MG; Start 12/25/16 at 06:00 Sodium Chloride (NS) 1,000 ml @ 60 mls/hr [id number] IV Last administered on 20:55; Admin Dose 60 MLS/HR; Start 12/24/16 at 17:00 CAT CHERY Dec 27, 2016 10:52
[2016-12-27] MEDS: SOD CHLORIDE 0.9% 1,000 ML IV SCH (11:40)
== END 2016-12-27 12:25 | disposition home or self-care (01) | DRG 313 ==
LOC: E/R 20:38 → MS4 22:45
PROVIDERS: ADMIT Internal Medicine; ATTEND Internal Medicine
DX: R07.9 Chest pain, unspecified (principal); I20.0 Unstable angina; I47.2 Ventricular tachycardia; E87.0 Hyperosmolality and hypernatremia; I10 Essential (primary) hypertension; D64.9 Anemia, unspecified; E78.5 Hyperlipidemia, unspecified; I25.2 Old myocardial infarction; R00.1 Bradycardia, unspecified; R94.31 Abnormal electrocardiogram [ECG] [EKG]
CPT/HCPCS: 36415; 71010; 76775; 78452; 80048; 80053; 80061; 82550; 82553; 82728; 83540; 83735; 83880; 84443; 84484; 85025; 85610; 85730; 90686; 93005; 93017; 93306; A9500; A9505; J1650; J2270; J2785; J3475; J7030; J7040

== ENCOUNTER 2017-05-09 00:44 | Emergency (ER) | END 2017-05-09 03:52 | disposition left against medical advice (07) ==

== ENCOUNTER 2017-11-21 00:22 | Emergency (ER) | END 2017-11-21 04:51 | disposition home or self-care (01) ==

== ENCOUNTER 2017-11-24 21:36 | Emergency (ER) | END 2017-11-25 01:51 | disposition home or self-care (01) ==